=== PATIENT | male | born 1980 | race Two or more races ===

== ENCOUNTER 2022-11-03 05:30 | Day surgery (SDC) | payer OTHER ==
[2022-11-03] MEDS ORDERED: NASAL MIST126 ML NASAL (08:16)
[2022-11-03] MEDS ORDERED: PEPCID20 MG PO (08:16)
== END 2022-11-03 10:00 | disposition home or self-care (01) ==
LOC: AMB-ENDOS 05:30 → CIR.AMB 15:30
PROVIDERS: ATTEND Surgery
DX: R10.13 Epigastric pain (principal); K44.9 Diaphragmatic hernia without obstruction or gangrene; Z20.822 Contact with and (suspected) exposure to COVID-19